=== PATIENT | female | born 1930 | race Caucasian/White ===

== ENCOUNTER 2016-08-04 06:25 | Day surgery (SDC) | payer MEDICARE ==
[~2016-08-04 06:25] MED LIST: ACTONEL; ADULT ASPIRIN81 MG; ANTIVERT25 MG PO; ATIVAN0.5 M1 PO; BLOOD PRESSURE; BYSTOLIC2.5 M1 PO; CALCIUM + VITA1 EACH PO; CALCIUM ACETATE PO; COD LIVER OIL1 EAC2 PO; CYCLOBENZAPRINE10 M1 PO; GLIPIZIDE5 MG; GLUCOPHAGE500 MG; GLUCOTROL XL2.5 MG; HUMALOG100 U/ML; HUMULIN R100 UNITS/ SC; KEFLEX500 MG; LEVAQUIN250 MG PO; LISINOPRIL10 MG; MELATONIN5 M5 PO; MIRALAX255 GM; MULTIVITAMIN1 TAB; MULTIVITAMIN1 TAB PO; NON-ASPIRIN PA500 M2 PO; NORCO 5/325 TAB1 TAB PO; NORCO 5/3251 TAB PO; NOVOLIN N100 UNIT/2 SC; NOVOLIN R100 UNIT/1 SC; NOVOLOG MIX 70/10 ML; NOVOLOG100 UNITS/ SC; OCUVEL CAPSULE1 EACH PO; OCUVITE SOFTGE1 EACH PO; PEPCID COM1 TAB.CHEW; PREDNISONE20 MG PO; PRILOSEC OTC20 MG; TRAMADOL HCL50 M2 PO; VITAMIN D2000 UNI1 PO; ZOCOR20 M1 PO
[2016-08-04 07:14] LABS: BASO % 0.8 % (0-2); BASO ABSOLUTE COUNT 0.1 tho/cmm (0.0-0.2); EOS % 2.8 % (0-7); EOSINOPHIL ABSOLUTE COUNT 0.2 tho/cmm (0.0-0.7); HCT-HEMATOCRIT 43.6 % (34.0-49.0); HGB-HEMOGLOBIN 14.3 gm/dl (12.0-15.5); IMMATURE GRANULOCYTES ABSOLUTE 0.02 tho/cmm (0-0.03); IMMATURE GRANULOCYTES PERCENT 0.2 % (0-0.3); LYMPH % 30.7 % (20-45); LYMPH ABSOLUTE COUNT 2.7 tho/cmm (0.8-4.5); MCH (MEAN CORPUSCULAR HGB) 29.9 pg (28.0-32.0); MCHC MEAN CORPUSCULAR HGB CONC 32.8 % (32.0-36.0); MCV (MEAN CELL VOLUME) 91.2 fl (82.0-96.0); MONO % 11.6 % (0-12); NEUTROPHIL ABSOLUTE COUNT 4.7 tho/cmm (1.6-8.0); NEUTROPHIL-AUTOMATED 4.7 tho/cmm (1.6-8.0); NEUTROPHILS % 53.9 % (40-80); PLATELET COUNT 143 tho/cmm (150-450); RED BLOOD COUNT 4.78 mil/cmm (4.00-5.20); RED CELL DISTRIBUTION WIDTH 13.7 % (12.4-16.4); WHITE BLOOD COUNT 8.7 tho/cmm (4.0-10.0)
[2016-08-04 07:20] LABS: ANION GAP 11 mmol/L (0-20); BLOOD UREA NITROGEN 22 mg/dl (6-24); CALCIUM 8.9 mg/dl (8.5-10.5); CARBON DIOXIDE-VENOUS 30 mmol/L (22-32); CHLORIDE 108 mmol/l (96-110); CREATININE 1.49 mg/dl (0.50-1.10); GLUCOSE 160 mg/dL (70-110); POTASSIUM 4.4 mmol/L (3.7-5.1); SODIUM 145 mmol/L (135-145); eGFR VALUE FOR BLACK 37 mL/Min
[2016-12-05] MEDS ORDERED: NORCO 5-325 TA1 EACH PO (11:09)
== END 2016-08-04 10:50 ==
LOC: SHSB 06:25 → ORE 08:37 → SHSB 09:45
PROVIDERS: Surgery
PROC: 0JQF0ZZ Repair Left Upper Arm Subcutaneous Tissue and Fascia, Open Approach (ICD-10-PCS; principal; 2016-08-04)
PROC: 0JBF0ZZ Excision of Left Upper Arm Subcutaneous Tissue and Fascia, Open Approach (ICD-10-PCS; 2016-08-04)
DX: D03.62 Melanoma in situ of left upper limb, including shoulder (principal); R53.1 Weakness; K21.9 Gastro-esophageal reflux disease without esophagitis; E11.22 Type 2 diabetes mellitus with diabetic chronic kidney disease; N18.9 Chronic kidney disease, unspecified; E11.40 Type 2 diabetes mellitus with diabetic neuropathy, unspecified; Z79.4 Long term (current) use of insulin; Z79.899 Other long term (current) drug therapy; Z88.2 Allergy status to sulfonamides; Z88.8 Allergy status to other drugs, medicaments and biological substances; Z91.040 Latex allergy status; Z90.49 Acquired absence of other specified parts of digestive tract; Z90.710 Acquired absence of both cervix and uterus; Z90.89 Acquired absence of other organs; Z98.890 Other specified postprocedural states
CPT/HCPCS: J0131; J0690